=== PATIENT | female | born 1965 | race Caucasian/White ===

== ENCOUNTER 2025-03-30 09:42 | Day surgery (SDC) | payer OTHER ==
[~2025-03-30] VITALS: Ht 152.4 cm; Wt 96.8 kg
[2025-03-30] VITALS (20 sets, daily range): BP systolic 75–123; BP diastolic 47–67
[~2025-03-30 09:42] MED LIST: ALBU90I INH; ALBU90OI6 INH; ALBU90OI61 INH; ASPI81EC PO; BACL10 PO; CALCIUM CARBON500 M1 PO; CARBAMAZEPINE200 M1 PO; GABA300 PO; HYDHCL25 PO; LEVSOD75 PO; LIDO700A20 TOP; NAPR500 PO; NITR.4SL SL; PARO30 PO; THERAGRAM PO; TOPI100 PO; URSO300 PO
[2025-03-30] MEDS ORDERED: CeFAZolin Sodium 2,000 MG in NS 100 ML IV SCH ×2 (10:25→21:00)
[2025-03-30] MEDS ORDERED: Tranexamic Acid 100 ML IV SCH (10:25)
[2025-03-30] MEDS ORDERED: Chlorhexidine Mouth Care 15 ML UDC MT SCH (10:25)
[2025-03-30] MEDS ORDERED: Ropivacaine 0.5% HCl/Pf 123.125 MG,EPINEPHrine HCL 0.25 MG,Ketorolac Tromethamine 15 MG... INFIL SCH (10:25)
[2025-03-30] MEDS ORDERED: HYDROmorphone HCl/Pf 1MG SYR IV PRN ×2 (11:15→11:25)
[2025-03-30] MEDS ORDERED: Ondansetron HCl 2 MG / ML 2ML Vial IV PRN ×2 (11:15→11:25)
[2025-03-30] MEDS ORDERED: Magnesium Hydroxide Conc 10 ML UDC PO PRN (11:20)
[2025-03-30] MEDS ORDERED: FentaNYL Citrate 50 MCG/ML 2 ML Injection IV PRN ×2 (11:20→11:25)
[2025-03-30] MEDS ORDERED: Albuterol 2.5 MG/3 ML VIAL INH PRN (11:25)
--- NOTE | 2025-03-30 11:34 | NUR ---
Ambulatory in Day Surgery History, Chart, Medications and Allergies reviewed before start of procedure. Pre-Op teaching done. Pt verbalizes understanding.
[2025-03-30] MEDS ORDERED: Metoclopramide HCl 5MG / ML 2ML Vial IV PRN (11:45)
[2025-03-30] MEDS ORDERED: Ketorolac Tromethamine 15mg Vial IV SCH (12:00)
[2025-03-30] MEDS ORDERED: Midazolam HCl 1MG / ML 2ML Vial ONE (12:49)
[2025-03-30] MEDS ORDERED: Ondansetron HCl 2 MG / ML 2ML Vial ONE (12:56)
[2025-03-30] MEDS ORDERED: ePHEDrine Sulfate 50 MG/ML 1ML Injection ONE (13:25)
--- NOTE | 2025-03-30 13:54 | NUR ---
03/30/25 1354 Jarek,Tangela SPINAL BLOCK COMPLETED BY [facility], UPON ENTRY TO OR. VANCOMYCIN 1GM IV STARTED IN THE PREOPERATIVE SETTING AT 1252.
[2025-03-30] MEDS ORDERED: Midazolam HCl 1MG / ML 2ML Vial IV PRN (14:05)
[2025-03-30] MEDS ORDERED: HYDROmorphone HCl/Pf 1MG SYR ONE (15:19)
[2025-03-30] MEDS ORDERED: FentaNYL Citrate 50 MCG/ML 2 ML Injection ONE (15:37)
[2025-03-30] MEDS ORDERED: Ketorolac Tromethamine 30mg Vial ONE (16:06)
[2025-03-30] MEDS ORDERED: Albuterol HFA200 ACT/6.7 GM INH INH PRN (16:20)
--- NOTE | 2025-03-30 17:08 | NUR ---
ARRIVAL TO UNIT PT ARRIVED TO UNIT AT 1630. SURGICAL SITE DRESSING C/D/I, POLAR PACK IN PLACE. TOLERATING PO. REPORTS SIGNIFICANT PAIN BUT FALLS ASLEEP QUICKLY. EDUCATED ON PLAN FOR THE NIGHT, CALL LIGHT PROVIDED.
--- NOTE | 2025-03-30 18:28 | NUR ---
SHIFT SUMMARY S/P L TKA NO ACUTE CHANGES SINCE ARRIVAL TO UNIT.
[2025-03-31 04:15] VITALS: BP 118/66
[2025-03-31 05:16] LABS: BASOPHILS ABSOLUTE AUTO 0.02 K/mm3 (0.00-0.23); BASOPHILS PERCENT AUTO 0 % (0-2); EOSINOPHILS ABSOLUTE AUTO 0.08 K/mm3 (0.00-0.68); EOSINOPHILS PERCENT AUTO 2 % (0-6); Hematocrit 31.8 % (33.0-51.0); Hemoglobin 10.2 g/dL (11.5-16.0); IMMATURE GRAN ABSOLUTE AUTO 0.02 K/mm3 (0.00-0.10); IMMATURE GRAN PERCENT AUTO 0 % (0-1); LYMPHOCYTES ABSOLUTE AUTO 0.81 K/mm3 (0.84-5.20); LYMPHOCYTES PERCENT AUTO 16 % (21-46); MONOCYTES ABSOLUTE AUTO 0.33 K/mm3 (0.16-1.47); MONOCYTES PERCENT AUTO 7 % (4-13); Mean Corpuscular HGB Conc 32.1 g/dL (31.5-36.5); Mean Corpuscular Volume 96 fL (80-100); NEUTROPHILS ABSOLUTE AUTO 3.69 K/mm3 (1.96-9.15); NEUTROPHILS PERCENT AUTO 75 % (41-73); NRBC ABSOLUTE 0.00 K/mm3 (0.00-0.02); NRBC Auto 0.0 /100 WBC (0.0-0.2); Platelet Count 163 K/mm3 (150-400); RDW Coefficient Variation 13.1 % (11.7-14.2); RDW Standard Deviation 46.7 fL (35.1-46.3)
[2025-03-31 05:39] LABS: Anion Gap 7.0 mmol/L (3-11); Blood Urea Nitrogen 17.0 mg/dL (8-24); CO2, Blood 25.0 mmol/L (21-32); Calcium, Blood 7.8 mg/dL (8.5-10.1); Chloride, Blood 112.0 mmol/L (98-108); Creatinine, Blood 0.7 mg/dL (0.40-1.00); Glucose, Blood 106.0 mg/dL (70-99); Potassium, Blood 4.0 mmol/L (3.5-5.5); Sodium, Blood 140.0 mmol/L (136-145)
--- NOTE | 2025-03-31 06:15 | NUR ---
SHIFT SUMMARY PT S/P LEFT TOTAL KNEE, PT HAS RESTED T/O THE NIGHT, PAIN MANAGED PER EMAR. PT HAS BEEN UP AND AMBULATING, HAS VOIDED. SURGICAL SITE WNL, DRESSING C/D/I. POST OP ANTIBIOTICS INFUSED. PT TOLERATING PO INTAKE. PT PENDING PHYSICAL THERAPY, AND THEN DISCHARGE TODAY. VITALS STABLE. BED IN LOWEST POSITION, CALL LIGHT WITHIN REACH.
[2025-03-31 07:00] VITALS: BP 96/57
[2025-03-31] MEDS ORDERED: ELIQUIS2.5 MG PO (10:03)
[2025-03-31] MEDS ORDERED: TRAM50 PO (10:28)
[2025-03-31 14:49] VITALS: BP 108/60
--- NOTE | 2025-03-31 16:30 | NUR ---
SHIFT SUMMARY PATIENT IS AOX4, POD#1 L TKA. PAIN NOT WELL MANAGED AND PATIENT IS STAYING ONE MORE NIGHT FOR PAIN AND SAFETY WITH TRANSFERS. DRESSING IS C/D/I. ABLE TO AMBULATE TO BATHROOM WITH 1 ASSIST. WORKS WITH THERAPY AND RECOMMENDATION FOR H/H. PATIENT IS MEDICATED PER EMAR. HIMANSHU DAVE MADE AWARE OF PATIENT STATUS. PATIENT IS UP IN CHAIR T/O SHIFT. AND ABLE TO MAKE NEEDS KNOWN. CALL LIGHT IS IN REACH AND VSS.
[2025-03-31 19:35] VITALS: BP 113/62
--- NOTE | 2025-04-01 04:03 | NUR ---
SHIFT SUMMARY DUNIA WAS ALERT AND FULLY ORIENTED ON ASSESSMENT. PT INITALLY UPSET WITH NOT HAVING MORPHINE AVAILABLE, PT EDUCATIED ON NURSING SCOPE OF PRACTICE. PT PAIN DID IMPROVE SLIGHTLY THIS SHIFT. PT ABLE TO SLEEP T/O SHIFT. DRESSINGS TO R HIP C/D/I, CIRCULATION AND SENSATION INTACT TO BLE'S, PT ABLE TO AMBULATE TO BR AND VOID APPROPRIATELY. NO ACUTE EVENTS TONIGHT. NO CHANGES TO PT CONDITION NOTED.
[2025-04-01 06:05] VITALS: BP 117/60
[2025-04-01 06:48] VITALS: BP 107/57
[2025-04-01] MEDS ORDERED: MULTIVITAMIN PO (11:33)
--- NOTE | 2025-04-01 11:36 | NUR ---
ASSUMED CARE OF PT @0700 AXO4. VSS. L KNEE TELFA DRESSING CDI. PT WORKED WITH PHYSICAL THERAPY YESTERDAY, PER PHYSICAL THERAPIST - PT OK TO DC BUT WITH HOME HEALTH REFERRAL. WHEN ADDRESSING THIS WITH PT - PT UNAWARE IF INSURANCE WILL COVER THIS - PT ON OHP. ATTEMPTING TO CONTACT TRANSFORMER MECHANIC RN NOW TO DETERMINE BEST ROUTE FOR SAFE DC. PT PAINFUL - MEDS PER EMAR.
[2025-04-01 12:08] VITALS: BP 100/58
--- NOTE | 2025-04-01 14:21 | NUR ---
dc"d at 1400 NO ACUTE CHANGES POST ASSUMPTION NOTE. VSS. IVPULLED OUT. BELONGINGS PACKED UP. DC INSTRUCTION PROVIDED TO PT. SISTER IN ROOM TO PICK PT UP. MEDICATIONS SENT TO [facility]. PT OUT TO CAR W/O COMPLICATIONS.
== END 2025-04-01 13:53 | disposition home health service (06) ==
LOC: ORSCMMR 09:42 → ORD 10:00 → ORSCMMR 10:00 → SURS 16:13 → ORSCMMR 23:00 → SURS 23:00 → ORSCMMR 03-31 23:00 → SURS 03-31 23:00 → ORSCMMR 04-01 13:53
PROVIDERS: Orthopaedic Surgery
PROC: 0SRD0JA Replacement of Left Knee Joint with Synthetic Substitute, Uncemented, Open Approach (ICD-10-PCS; principal; 2025-03-30 11:00)
DX: M17.12 Unilateral primary osteoarthritis, left knee (principal); I10 Essential (primary) hypertension; G47.33 Obstructive sleep apnea (adult) (pediatric); J45.909 Unspecified asthma, uncomplicated; E03.9 Hypothyroidism, unspecified; E66.01 Morbid (severe) obesity due to excess calories; Z68.41 Body mass index [BMI] 40.0-44.9, adult; G50.0 Trigeminal neuralgia; G40.909 Epilepsy, unspecified, not intractable, without status epilepticus; Z79.899 Other long term (current) drug therapy; Z98.84 Bariatric surgery status
CPT/HCPCS: 36415; 73560-LT; 80048; 85025; 94762; 97116; 97162; 97530; A9270; C1776; J0166; J0690; J0735; J1171; J1885; J2250; J2405; J2704; J2795; J3010; J3373; J7050; J7120

== ENCOUNTER 2025-05-11 06:33 | Day surgery (SDC) | payer OTHER ==
[~2025-05-11] VITALS: Ht 152.4 cm; Wt 91.9 kg
[~2025-05-11 06:33] MED LIST changes: +ALLEGRA ALLERGY60 MG PO; +BARIATRIC MULT1 EACH PO; +CITRACAL-D3 ER1 EAC1 PO; +ELIQUIS2.5 MG PO; +HYDMOR2 PO; +MULTIVITAMIN PO; +Ondansetron Odt8 MG MM; +Percocet 5-3251 EACH PO; +TRAM50 PO
--- NOTE | 2025-05-11 07:00 | NUR ---
PT AMBULATORY INTO [facility] WITH WALKER. PT REPORTS FEELING EXTREMELY ANXIOUS. PT REPORTS 7/10 LEFT KNEE PAIN. PT VERBALIZING CONCERN REGARDING PAIN MANAGEMENT. WILL UPDATE ANESTHESIA PROVIDER. HISTORY AND ALLERGIES REVIEWED. LUNGS CLEAR-SATS>90% ON RA. NPO STATUS CONFIRMED. PT NEPHEW IS RIDE HOME TODAY. PT HAS PHONE, WALKER, AND CLOTHING THAT WILL BE LEFT IN BAY 10 FOR STEP/DISCHARGE.
[2025-05-11 07:11] VITALS: BP 134/84
[2025-05-11] MEDS ORDERED: Midazolam HCl 1MG / ML 2ML Vial ONE (07:38)
[2025-05-11] MEDS ORDERED: HYDROmorphone HCl/Pf 1MG SYR IV PRN (07:50)
[2025-05-11] MEDS ORDERED: FentaNYL Citrate 50 MCG/ML 2 ML Injection IV PRN ×2 (07:50→07:55)
[2025-05-11] MEDS ORDERED: Albuterol 2.5 MG/3 ML VIAL INH PRN (07:50)
[2025-05-11] MEDS ORDERED: HYDROmorphone HCl/Pf 1MG SYR ONE (07:51)
[2025-05-11] MEDS ORDERED: Ketorolac Tromethamine 30mg Vial ONE (07:53)
[2025-05-11] MEDS ORDERED: Dexamethasone Sod Phos 10 MG/ML 1ML VIAL ONE (07:53)
[2025-05-11] MEDS ORDERED: Ondansetron HCl 2 MG / ML 2ML Vial ONE (07:53)
[2025-05-11] MEDS ORDERED: Ondansetron HCl 2 MG / ML 2ML Vial IV PRN (07:55)
[2025-05-11] MEDS ORDERED: Morphine Sulfate 4 MG/1 ML Injection IV PRN (07:55)
[2025-05-11 08:00] VITALS: BP 123/71
[2025-05-11 08:12] VITALS: BP 127/79
--- NOTE | 2025-05-11 08:36 | NUR ---
Discharge instructions reviewed with patient. Patient verbalizes understanding. Copy given to patient to take home. Patient up to Ambulate independently. Gait steady W/ASSIST FROM WALKER
--- NOTE | 2025-05-11 08:37 | NUR ---
PT D/C. BUT UNABLE TO REACH HER RIDE. CALL LIGHT W/IN REACH. WILL NOTIFY RN WHEN RIDE IS HERE.
--- NOTE | 2025-05-11 08:58 | NUR ---
PT D/C TO HOME IN STABLE CONDITON VIA W/C, PAIN MANAGABLE. PT HAS BEEN AMBULATING IN [place] W/WALKER AND STRETCHING HER LEFT KNEE.
== END 2025-05-11 08:40 | disposition home or self-care (01) ==
LOC: ORSCMMR 06:33 → ORD 08:00 → ORSCMMR 08:40
PROVIDERS: Orthopaedic Surgery
PROC: 0SNDXZZ Release Left Knee Joint, External Approach (ICD-10-PCS; principal; 2025-05-11 08:00)
DX: T84.82XA Fibrosis due to internal orthopedic prosthetic devices, implants and grafts, initial encounter (principal); Z96.652 Presence of left artificial knee joint; J45.909 Unspecified asthma, uncomplicated; E03.9 Hypothyroidism, unspecified; G40.909 Epilepsy, unspecified, not intractable, without status epilepticus; Z79.899 Other long term (current) drug therapy
CPT/HCPCS: A9270; J1100; J1171; J1885; J2250; J2405; J2704; J7120

== ENCOUNTER → 2025-07-02 | Outpatient (CLI) | payer OTHER | END | disposition home or self-care (01) | LOC: LAB 07:58 → LAB SHORT 07:58 | DX: D22.121 Melanocytic nevi of left upper eyelid, including canthus (principal) | CPT/HCPCS: 88305 ==